=== PATIENT | male | born 1970 | race American Indian/Alaskan Native ===

== ENCOUNTER 2017-10-01 14:45 | Emergency (ER) | payer MEDICAID, OTHER ==
[2017-10-01 14:52] VITALS: BP 143/86
[2017-10-01] MEDS ORDERED: Acetaminophen/HYDROcodone 325-10 MG Tab PO ONE (15:08)
[2017-10-01] MEDS ORDERED: Silver Sulfadiazine 1% Crm 50 GM Tube TOP ONE (15:12)
--- NOTE | 2017-10-01 15:19 | EDM.PDOC ---
ED HPI GENERAL MEDICAL PROBLEM - General Chief Complaint: Skin Complaint Stated Complaint: STEPPED ON HOT COAL, LEFT TOE Time Seen by Provider: 10/01/17 15:00 Source of Information: Reports: Patient History Limitations: Reports: No Limitations - History of Present Illness INITIAL COMMENTS - FREE TEXT/NARRATIVE: This 47 yo male patient reports to the ED with pain in his left 4th distal toe due to stepping on a hot coal. The patient reports he stepped on the coal 2 days ago and has been "putting up" with the pain since that time. The patient reports increased concern due to a history of diabetes. Onset Date: 09/29/17 Duration: Constant Location: Reports: Lower Extremity, Left (distal 4th toe) Quality: Reports: Ache, Dull Severity: Moderate Improves with: Reports: None Worsens with: Reports: None Associated Symptoms: Reports: No Other Symptoms Left 4-Ring toe Pain Score (Numeric/FACES): 7 - Related Data Allergies Allergy/AdvReac Type Severity Reaction Status Date / Time Cats Allergy Airway Uncoded 10/01/17 14:50 Tightness Home Meds: Home Meds Aspirin [Halfprin] 1 tab PO DAILY 07/17/15 [History] atorvaSTATin [Lipitor] 1 tab PO DAILY 10/15/15 [History] metFORMIN HCl [Metformin HCl] 1 tab PO BID 10/15/15 [History] Past Medical History Other HEENT History: Right ear Cardiovascular History: Reports: High Cholesterol, Hypertension Respiratory History: Reports: None Gastrointestinal History: Reports: None Genitourinary History: Reports: None Musculoskeletal History: Reports: None Neurological History: Reports: None Psychiatric History: Reports: None Endocrine/Metabolic History: Reports: Diabetes, Type II Hematologic History: Reports: None Immunologic History: Reports: None Oncologic (Cancer) History: Reports: None Dermatologic History: Reports: None - Infectious Disease History Infectious Disease History: Reports: Chicken Pox - Past Surgical History Head Surgeries/Procedures: Reports: None Social & Family History - Family History Family Medical History: Noncontributory - Tobacco Use Smoking Status *Q: Current Some Day Smoker Years of Tobacco use: 1 Packs/Tins Daily: 0.2 - Caffeine Use Caffeine Use: Reports: Coffee, Soda, Tea - Recreational Drug Use Recreational Drug Use: No - Living Situation & Occupation Living situation: Reports: with Family Occupation: Unemployed ED ROS GENERAL - Review of Systems Review Of Systems: ROS reveals no pertinent complaints other than HPI. ED EXAM, SKIN/RASH Exam: See Below Exam Limited By: No Limitations General Appearance: Alert, WD/WN, Mild Distress Eye Exam: Bilateral Eye: EOMI, Normal Inspection, PERRL Ears: Normal External Exam, Normal Canal, Hearing Grossly Normal, Normal TMs Nose: Normal Inspection, Normal Mucosa, No Blood Throat/Mouth: Normal Inspection, Normal Lips, Normal Teeth, Normal Gums, Normal Oropharynx, Normal Voice, No Airway Compromise Head: Atraumatic, Normocephalic Neck: Normal Inspection, Supple, Non-Tender, Full Range of Motion Respiratory/Chest: No Respiratory Distress, Lungs Clear, Normal Breath Sounds, No Accessory Muscle Use, Chest Non-Tender Cardiovascular: Normal Peripheral Pulses, Regular Rate, Rhythm, No Edema, No Gallop, No JVD, No Murmur, No Rub GI/Abdominal: Normal Bowel Sounds, Soft, Non-Tender, No Organomegaly, No Distention, No Abnormal Bruit, No Mass (Male) Exam: Deferred Rectal (Males) Exam: Deferred Back Exam: Normal Inspection, Full Range of Motion, NT Extremities: Other (left 4th distal toe pain (partial thickness burn)) Neurological: Alert, Oriented, CN II-XII Intact, Normal Cognition, Normal Gait, Normal Reflexes, No Motor/Sensory Deficits Psychiatric: Normal Affect, Normal Mood Skin: Other (partial thickness burn to the left 4th distal toe (1.0 cm diameter) ) Location, Skin: Lower Extremity, Left Characteristics: Other Associated features: Tenderness, Swelling Lymphatic: No Adenopathy Course - Vital Signs Last Recorded V/S: Last Vital Signs Temp 36.4 C 10/01/17 14:51 Pulse 69 10/01/17 14:51 Resp 14 10/01/17 14:51 BP 143/86 H 10/01/17 14:51 Pulse Ox 100 10/01/17 14:51 - Orders/Labs/Meds Meds: Medications Discontinued Medications Generic Name Dose Route Start Last Admin Trade Name Freq PRN Reason Stop Dose Admin Hydrocodone Bitart/Acetaminophen 1 tab 10/01/17 15:08 Zenda 325-10 Mg PO 10/01/17 15:09 ONETIME ONE Silver Sulfadiazine 1 gm 10/01/17 15:12 Silvadene 1% Cream 50 Gm TOP 10/01/17 15:13 ONETIME ONE Departure - Departure Time of Disposition: 15:18 Disposition: Home, Self-Care 01 Condition: Fair Clinical Impression: Partial thickness burn of fourth toe Qualifiers: Encounter type: initial encounter Laterality: left Qualified Code(s): T25.232A - Burn of second degree of left toe(s) (nail), initial encounter - Discharge Information *PRESCRIPTION DRUG MONITORING PROGRAM REVIEWED*: Not Applicable *COPY OF PRESCRIPTION DRUG MONITORING REPORT IN PATIENT KODY: Not Applicable Instructions: Burn Care, Adult, [id number] Care Plan Goals: The patient was advised of the examination results during the visit. The patient was given a dose of Zenda while in the ED. The patient wound was cleaned and dressed with Silvadene Cream while in the ED. The patient was encouraged to keep the area clean and elevated over the next 48 hours. The patient may take Tylenol or ibuprofen as directed for temporary symptom relief. If the patient has any additional symptoms, the patient should follow-up with his primary care facility or return to the emergency department.
== END 2017-10-01 15:44 | disposition home or self-care (01) ==
LOC: DL.ED 14:45
DX: T25.032A Burn of unspecified degree of left toe(s) (nail), initial encounter (principal); F17.210 Nicotine dependence, cigarettes, uncomplicated; I10 Essential (primary) hypertension; E78.00 Pure hypercholesterolemia, unspecified; E11.9 Type 2 diabetes mellitus without complications; Z79.84 Long term (current) use of oral hypoglycemic drugs; Z79.899 Other long term (current) drug therapy; Z79.82 Long term (current) use of aspirin; Z91.09 Other allergy status, other than to drugs and biological substances
CPT/HCPCS: 16020; 99283; A9270

== ENCOUNTER 2018-10-10 20:11 | Emergency (ER) | payer MEDICAID, OTHER ==
[2018-10-10] MEDS ORDERED: Amoxicillin 500 MG Cap PO ONE (20:24)
[2018-10-10 20:25] VITALS: BP 154/89
--- NOTE | 2018-10-10 20:28 | EDM.PDOC ---
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 - Related Data Allergies Allergy/AdvReac Type Severity Reaction Status Date / Time Cats Allergy Airway Uncoded 10/01/17 14:50 Tightness Home Meds: Home Meds Aspirin [Halfprin] 1 tab PO DAILY 07/17/15 [History] atorvaSTATin [Lipitor] 1 tab PO DAILY 10/15/15 [History] metFORMIN HCl [Metformin HCl] 1 tab PO BID 10/15/15 [History] Past Medical History Other HEENT History: Right ear Cardiovascular History: Reports: High Cholesterol, Hypertension Respiratory History: Reports: None Gastrointestinal History: Reports: None Genitourinary History: Reports: None Musculoskeletal History: Reports: None Neurological History: Reports: None Psychiatric History: Reports: None Endocrine/Metabolic History: Reports: Diabetes, Type II Hematologic History: Reports: None Immunologic History: Reports: None Oncologic (Cancer) History: Reports: None Dermatologic History: Reports: None - Infectious Disease History Infectious Disease History: Reports: Chicken Pox - Past Surgical History Head Surgeries/Procedures: Reports: None Social & Family History - Family History Family Medical History: Noncontributory - Caffeine Use Caffeine Use: Reports: Coffee, Soda, Tea - Living Situation & Occupation Living situation: Reports: with Family Occupation: Unemployed ED ROS ENT - Review of Systems Review Of Systems: ROS reveals no pertinent complaints other than HPI. ED EXAM, ENT - Physical Exam Exam: See Below Exam Limited By: No Limitations General Appearance: Alert, WD/WN, No Apparent Distress Ears: Hearing Grossly Normal, Canal Material, TM Erythema, Other (right >, wax in canal) Mouth/Throat: Normal Inspection Head: Atraumatic Neck: Non-Tender, Full Range of Motion Respiratory/Chest: No Respiratory Distress Cardiovascular: Regular Rate, Rhythm GI/Abdominal: Soft, Non-Tender Neurological: Alert, Oriented, Normal Cognition, Normal Gait, No Motor/Sensory Deficits Psychiatric: Flat Affect Skin: Warm, Dry, Normal Color Lymphatic: No Adenopathy Course - Orders/Labs/Meds Orders: Active Orders 24 hr Category Date Time Status Amoxicillin [Amoxil] Med 08/25/19 20:24 Once 500 mg PO ONETIME ONE Departure - Departure Time of Disposition: 20:27 Disposition: Home, Self-Care 01 Condition: Good Clinical Impression: Otitis media Qualifiers: Otitis media type: suppurative Chronicity: acute Laterality: bilateral Recurrence: not specified as recurrent Spontaneous tympanic membrane rupture: without spontaneous rupture Qualified Code(s): H66.003 - Acute suppurative otitis media without spontaneous rupture of ear drum, bilateral - Discharge Information Instructions: Otitis Media, Adult, [id number] Additional Instructions: 1) don't water into ears 2) follow up at clinic rx given; amox 250mg tid x 30 - My Orders Last 24 Hours: My Active Orders 10/10/18 20:24 Amoxicillin [Amoxil] 500 mg PO ONETIME ONE - Assessment/Plan Last 24 Hours: My Active Orders 10/10/18 20:24 Amoxicillin [Amoxil] 500 mg PO ONETIME ONE
== END 2018-10-10 20:35 | disposition home or self-care (01) ==
LOC: DL.ED 20:11
DX: H66.003 Acute suppurative otitis media without spontaneous rupture of ear drum, bilateral (principal); I10 Essential (primary) hypertension; E11.9 Type 2 diabetes mellitus without complications; E78.00 Pure hypercholesterolemia, unspecified; Z79.82 Long term (current) use of aspirin; Z79.84 Long term (current) use of oral hypoglycemic drugs; Z79.899 Other long term (current) drug therapy; Z91.09 Other allergy status, other than to drugs and biological substances
CPT/HCPCS: 99282; A9270

== ENCOUNTER 2018-10-15 22:59 | Emergency (ER) | payer MEDICAID | END 2018-10-16 00:01 | disposition left against medical advice (07) | LOC: DL.ED 22:59 | DX: Z53.21 Procedure and treatment not carried out due to patient leaving prior to being seen by health care provider (principal) ==

== ENCOUNTER 2021-11-28 21:15 | Emergency (ER) | payer MEDICAID ==
[2021-11-28] MEDS ORDERED: Aspirin 325 MG Tab PO ONE (21:35)
[2021-12-22 10:52] LABS: ANION GAP 12.8 mEq/L (7-13); CHLORIDE,CL 101 mmol/L (98-107); ESTIMATED GFR 70 mL/min (>=60); SODIUM,NA 138 mmol/L (136-145)
== END 2021-11-28 22:31 | disposition home or self-care (01) ==
LOC: DL.ED 21:15
DX: R07.89 Other chest pain (principal)
CPT/HCPCS: 36415; 71045; 80053; 84484; 85025; 85379; 85610; 93005; 99285; A9270-GY

== ENCOUNTER 2023-03-31 13:58 | Emergency (ER) | payer MEDICAID ==
[2023-03-31 14:03] LABS: BASOPHILS PERCENT AUTO 0.1 % (0.0-1.0); EOSINOPHILS PERCENT AUTO 2.8 % (1.0-3.0); HEMATOCRIT 54.1 % (40.0-54.0); HEMOGLOBIN 18.1 g/dL (14.0-18.0); LYMPHOCYTES PERCENT AUTO 27.3 % (20.5-50.1); MEAN CORPUSCULAR HEMOGLOBIN 28.2 pg (27.0-34.0); MEAN CORPUSCULAR HGB CONC 33.5 g/dL (33.0-35.0); MEAN CORPUSCULAR VOLUME 84.3 fL (80-100); MONOCYTES PERCENT AUTO 7.4 % (2-8); NEUTROPHILS PERCENT AUTO 62.4 % (42.2-75.2); PLATELET COUNT,PLT 209 10^3/uL (150-450); RED BLOOD CELL COUNT 6.42 10^6/uL (4.6-6.2)
[2023-03-31 14:09] VITALS: BP 134/84; PULSE 113
[2023-03-31] MEDS: Sodium Chloride 0.9% 1,000 ML IV ONE (14:18)
[2023-03-31 14:24] LABS: A/G RATIO 1.2; ALBUMIN 4.3 g/dL (3.4-5.0); ANION GAP 16.8 mEq/L (7-13); BILIRUBIN TOTAL 0.5 mg/dL (0.2-1.0); BUN/CREATININE RATIO 6.4 (No establ ref range); CALCIUM 8.8 mg/dL (8.5-10.1); CREATININE 1.09 mg/dL (0.70-1.30); POTASSIUM,K 3.8 mmol/L (3.5-5.1)
== END 2023-03-31 20:45 | disposition home or self-care (01) ==
LOC: DL.ED 13:58
DX: F10.120 Alcohol abuse with intoxication, uncomplicated (principal); E78.00 Pure hypercholesterolemia, unspecified; I10 Essential (primary) hypertension; E11.9 Type 2 diabetes mellitus without complications; Z79.82 Long term (current) use of aspirin; Z79.84 Long term (current) use of oral hypoglycemic drugs; Y90.8 Blood alcohol level of 240 mg/100 ml or more
CPT/HCPCS: 36415; 70160; 80053; 80307; 85025; 99284; J7030

== ENCOUNTER 2024-11-18 05:47 | Day surgery (SDC) | payer MEDICAID ==
[2024-11-18] MEDS ORDERED: Lactated Ringers 1,000 ML IV ONE (05:48)
[2024-11-18] MEDS ORDERED: Propofol 200 MG/20 ML SDV IV ONE (05:48)
[2024-11-18] MEDS: Lactated Ringers 1,000 ML IV SCH (06:20)
[2024-11-18 08:07] VITALS: BP 117/72; PULSE 72
[2024-11-18] MEDS ORDERED: Propofol 200 MG/20 ML SDV ONE (11:53)
== END 2024-11-18 09:55 | disposition home or self-care (01) ==
LOC: DL.ENDO 05:47
PROVIDERS: ATTEND Internal Medicine Gastroenterology
DX: Z12.11 Encounter for screening for malignant neoplasm of colon (principal); K62.1 Rectal polyp; I10 Essential (primary) hypertension; E11.9 Type 2 diabetes mellitus without complications; G24.5 Blepharospasm; D75.1 Secondary polycythemia; F17.210 Nicotine dependence, cigarettes, uncomplicated; Z91.09 Other allergy status, other than to drugs and biological substances; Z79.84 Long term (current) use of oral hypoglycemic drugs
CPT/HCPCS: 00811; 45385; 82947; J2704; J7120